=== PATIENT | female | born 1990 | race African-American/Black ===

== ENCOUNTER 2018-10-25 20:32 | Emergency (ER) | payer OTHER ==
[~2018-10-25] VITALS: Ht 165.1 cm; Wt 59.0 kg
--- NOTE | 2018-10-25 20:34 | NUR ---
ED Nurse Note: pt was not on the waiting room when called.
[2018-10-25] MEDS ORDERED: NKM (20:43)
[2018-10-25 20:45] VITALS: BP 120/80
--- NOTE | 2018-10-25 20:45 | NUR ---
ED Nurse Note: pt walked in c/o of inhaling bleach 7 hours ago. denies allergic reaction. pt stated she feels nauseated.
[2018-10-25 21:00] VITALS: BP 122/76
--- NOTE | 2018-10-25 21:00 | NUR ---
ED Nurse Note: Patient is cleared by Dr. Huerta to be discharged. patient is alert and oriented x4, ambulatory with a steady gait, VSS. patient acknowledged the need to follow up with PMD within a week if symptoms dont improve, all belongings sent home with patient, ID band removed, patient left without paperwork
--- NOTE | 2018-10-25 21:02 | Emergency Room Report ---
History of Present Illness General Chief Complaint: General Complaint Source: Patient Present Illness HPI Is a 28-year-old female with no past medical history. She presents with chief complaint of bleach poisoning. She dropped a bottle beats and some of it splashed into her nostril. Since then she that that she didn't feel well. She felt abnormal. Marshall nauseous but no fever chills but no abdominal pain. She thinks she is poisoning. Allergies: Coded Allergies: No Known Allergies (Unverified , 10/25/18) Patient History Past Medical History: see triage record, old chart reviewed Past Surgical History: none Pertinent Family History: none Social History: Denies: smoking Last Menstrual Period: oct 22, 2018 Now: No Immunizations: other Reviewed Nursing Documentation: PMH: Agreed; PSxH: Agreed Nursing Documentation-PMH Past Medical History: No Stated History Review of Systems Eye: Denies: eye pain, blurred vision ENT: Denies: ear pain, nose congestion, throat swelling Respiratory: Denies: cough, shortness of breath Cardiovascular: Denies: chest pain, palpitations Gastrointestinal: Denies: abdominal pain, diarrhea, nausea, vomiting Musculoskeletal: Denies: back pain, joint pain Skin: Denies: rash Neurological: Denies: headache, numbness Endocrine: Denies: increased thirst, increased urine Hematologic/Lymphatic: Denies: easy bruising All Other Systems: negative except mentioned in HPI Physical Exam Vital Signs Date Time Temp Pulse Resp B/P (MAP) Pulse Ox O2 Delivery O2 Flow Rate FiO2 10/25/18 20:39 98.1 80 16 120/80 99 Room Air vitals te Sp02 EP Interpretation: reviewed, normal General Appearance: well appearing, no apparent distress, alert Head: normocephalic, atraumatic Eyes: bilateral eye PERRL, bilateral eye EOMI ENT: hearing grossly normal, normal pharynx Neck: full range of motion, supple, no meningismus Respiratory: chest non-tender, lungs clear, normal breath sounds Cardiovascular #1: regular rate, rhythm, no murmur Gastrointestinal: normal bowel sounds, non tender, no mass, no organomegaly, no bruit, non-distended Musculoskeletal: back normal, gait/station normal, normal range of motion Neurologic: alert, oriented x3 Psychiatric: anxious Skin: warm/dry Medical Decision Making Diagnostic Impression: Primary Impression: Panic attack Additional Impression: Chemical exposure ER Course Patient with anxiety and panic attack secondary to exposure to bleach. Try to reassure the patient that there is no issue with this amount of bleach in her nostril. It is safe. She would not listen to me got up and left. Patient left without paperwork. Last Vital Signs Date Time Temp Pulse Resp B/P (MAP) Pulse Ox O2 Delivery O2 Flow Rate FiO2 10/25/18 20:39 98.1 80 16 120/80 99 Room Air Status: unchanged Disposition: HOME, SELF-CARE Condition: Stable Fletcher Huerta MD Oct 25, 2018 21:02
== END 2018-10-25 21:30 | disposition home or self-care (01) ==
LOC: EMR 21:27
DX: F41.0 Panic disorder [episodic paroxysmal anxiety] (principal); Z77.098 Contact with and (suspected) exposure to other hazardous, chiefly nonmedicinal, chemicals; F17.200 Nicotine dependence, unspecified, uncomplicated
CPT/HCPCS: 99281